=== PATIENT | male | born 1995 | race Two or more races ===

== ENCOUNTER 2022-03-23 20:15 | Emergency (ER) | payer OTHER ==
[~2022-03-23] VITALS: Ht 193 cm; Wt 68.9 kg
[2022-03-23 21:50] VITALS: BP 127/76
[2022-03-24] MEDS ORDERED: IBUPROFEN 600MG TABLET PO ONE (00:45)
[2022-03-24] MEDS ORDERED: METH-653 MT (03:16)
[2022-03-24] MEDS ORDERED: IBUP-2029 MT (03:16)
== END 2022-03-24 03:45 | disposition home or self-care (01) ==
LOC: EDSEX 20:15 → ER 20:15
DX: S09.8XXA Other specified injuries of head, initial encounter (principal); S39.012A Strain of muscle, fascia and tendon of lower back, initial encounter; V49.49XA Driver injured in collision with other motor vehicles in traffic accident, initial encounter; Y93.89 Activity, other specified; Y92.89 Other specified places as the place of occurrence of the external cause; Y99.8 Other external cause status
CPT/HCPCS: 72100; 73560; 99284